=== PATIENT | male | born 1995 | race Caucasian/White ===

== ENCOUNTER 2018-12-14 22:56 | Emergency (ER) | payer OTHER ==
[2018-12-15] MEDS: HYDROCODONE/APAP (5/325) TAB PO (00:26)
[2018-12-15] MEDS: ONDANSETRON (ODT) 4 MG TAB ODT (00:26)
[2018-12-15] MEDS: DIPHTH/TET/ACEL PERTUSS (ADULT) 0.5 ML VIAL IM* (00:27)
== END 2018-12-15 02:07 | disposition home or self-care (01) ==
LOC: FTE 12-15 02:07
DX: S02.40CA Maxillary fracture, right side, initial encounter for closed fracture (principal); S01.511A Laceration without foreign body of lip, initial encounter; S06.0X0A Concussion without loss of consciousness, initial encounter; S20.219A Contusion of unspecified front wall of thorax, initial encounter; M62.838 Other muscle spasm; V43.52XA Car driver injured in collision with other type car in traffic accident, initial encounter; Z23 Encounter for immunization
CPT/HCPCS: 70450; 70486; 71046; 72125; 90471; 90715; 99284-25